=== PATIENT | female | born 1950 | race Caucasian/White ===

== ENCOUNTER 2021-03-02 10:28 | Outpatient (CLI) | payer MEDICARE | END 2021-03-02 10:29 | disposition home or self-care (01) | LOC: CSHCT 10:28 | PROVIDERS: ATTEND Internal Medicine | DX: N18.31 Chronic kidney disease, stage 3a (principal); Z85.528 Personal history of other malignant neoplasm of kidney; Z90.5 Acquired absence of kidney; K76.9 Liver disease, unspecified; Z90.710 Acquired absence of both cervix and uterus | CPT/HCPCS: 74177; 82565 ==

== ENCOUNTER 2022-04-09 12:09 | Outpatient (CLI) | payer MEDICARE | END 2022-04-09 12:10 | disposition home or self-care (01) | LOC: CSHULT 12:09 | PROVIDERS: ATTEND Internal Medicine | DX: R10.11 Right upper quadrant pain (principal); N18.31 Chronic kidney disease, stage 3a; R93.89 Abnormal findings on diagnostic imaging of other specified body structures; J34.9 Unspecified disorder of nose and nasal sinuses | CPT/HCPCS: 70220; 76700 ==

== ENCOUNTER 2023-02-10 14:57 | Outpatient (CLI) | payer MEDICARE | END 2023-02-10 14:58 | disposition home or self-care (01) | LOC: CSHMAMMO 14:57 | PROVIDERS: ATTEND Obstetrics & Gynecology | DX: M85.89 Other specified disorders of bone density and structure, multiple sites (principal); N95.1 Menopausal and female climacteric states | CPT/HCPCS: 77080 ==